=== PATIENT | female | born 1960 | race Caucasian/White ===

== ENCOUNTER 2024-02-27 06:21 | Day surgery (SDC) | payer OTHER, SELFPAY ==
--- NOTE | 2024-02-26 14:11 | PTCARENOTE ---
Patients 12/2023 ECG w/o interpretation; reviewed by Dr. Denney- no additional interventions required
[2024-02-27] VITALS (10 sets, daily range): BP systolic 119–163; BP diastolic 63–71; BMI 31.7
[2024-02-27] MEDS: CELEBREX 200 MG PO (15:42)
[2024-02-27] MEDS: TYLENOL 1000 MG PO (15:42)
[2024-02-27] MEDS: DEMEROL 12.5 MG IV (17:34)
[2024-02-27] MEDS: DUONEB 3 ML INH (18:16)
== END 2024-02-27 19:47 | disposition home or self-care (01) ==
LOC: SDS 06:21
PROVIDERS: ATTENDING PHYSICIAN Orthopaedic Surgery Hand Surgery; FAMILY PHYSICIAN Family Medicine
DX: S82.841A Displaced bimalleolar fracture of right lower leg, initial encounter for closed fracture (principal); M25.571 Pain in right ankle and joints of right foot; W54.1XXA Struck by dog, initial encounter
CPT/HCPCS: 27814; 94640; C1713; C1769

== ENCOUNTER 2024-03-27 10:30 | Emergency (ER) | payer OTHER, SELFPAY ==
[2024-03-27 10:36] VITALS: BP 161/76
--- NOTE | 2024-03-27 13:15 | ED.GENMED ---
History of Present Illness
General
Chief Complaint: Nose Bleed
Source: patient
Exam Limitations: none
Time Seen by Provider: 03/27/24 11:24
History of Present Illness
History of Present Illness:
63-year-old female presents with nosebleed starting earlier this morning and has been intermittent since then. She went to the urgent care and her nose. She went home. Started bleeding again at home. She denies chest pain. She is not
anticoagulated. The bleeding is coming from the right side of the nose.
Past History
Past History
ED Past Medical History: Other (Eczema and asthma)
Social History
Tobacco: Former smoker
Alcohol: Occasional
Family History
Family History: Other (Leukemia and strokes)
Phy Exam
Physical Exam
Physical Exam:
General: Well-appearing female no acute respiratory distress
HEENT: Normocephalic bilateral nasal cavities examined. No active bleeding posterior pharynx without blood. There is friable membranes noted over the medial anterior aspect of the right side of the nose.
Extremities: No cyanosis
Course
Vital Signs
Initial and Last Documented VS:
Initial Vital Signs
Temp Pulse Resp BP Pulse Ox
97.6 F 110 16 161/76 97
03/27/24 10:36 03/27/24 10:36 03/27/24 10:36 03/27/24 10:36 03/27/24 10:36
Last Documented Vital Signs
Temp Pulse Resp BP Pulse Ox
97.6 F 110 16 161/76 97
03/27/24 10:36 03/27/24 10:36 03/27/24 10:36 03/27/24 10:36 03/27/24 10:36
MDM/Problems Addressed
Differential Diagnosis Includes:
Intermittent right sided nosebleed. Friable membranes noted in the right nasal cavity. Piece of cotton soaked with lidocaine and epinephrine was placed into the right side of the nose and let sit for 10 minutes. This was then removed and the
friable membranes were slightly oozing after removal of the cotton. This was cauterized with silver nitrate. The patient was observed for period of time after the silver nitrate cauterization and there is no further bleeding. She has been
ambulatory without any bleeding. Stable for discharge. Return precuations given
*Critical Care Note
Total Time (30-74mins, 75-104mins- exclusive of procedures): Not Applicable
ED Attending Note
-
Portions of this chart may have been created with voice recognition software.� Occasional wrong word or��sound alike� substitutions may have occurred due to the inherent limitations of voice recognition software.
Discharge Plan
Departure
Patient Disposition: Home (Routine Discharge)
Date of Disposition: 03/27/24
Time of Disposition: 13:17
Patient with high blood pressure during this ER visit?: No
Discharge Problem:
Acute anterior epistaxis
Instructions: Nosebleeds (DC)
Prescriptions:
No Action
loratadine [Allergy Relief (loratadine)] 10 MG tablet,disintegrating
10 mg PO DAILY
Patient Comments:
pt alternates with zyrtec
progesterone micronized 200 mg Capsule
200 mg PO HS
montelukast 10 mg Tablet
10 mg PO HS
diltiazem HCl 240 mg Capsule,Extended Release 24hr
240 mg PO DAILY
lysine 1,000 mg Tablet
1,000 mg PO DAILY
omeprazole 20 mg Tablet,Delayed Release (Dr/Ec)
20 mg PO DAILY
cholecalciferol (vitamin D3) [Vitamin D3] 125 mcg (5,000 unit) Tablet
125 mcg PO DAILY
Calcium Magnesium 500 mg calcium- 250 mg Tablet
1 tab PO DAILY
naproxen sodium [Aleve] 220 mg Tablet
220 mg PO Q8H PRN (Reason: pain)
albuterol sulfate 0.63 mg/3 mL Solution For Nebulization
0.63 mg INHALATION Q4H PRN (Reason: SOB)
albuterol sulfate 90 mcg/actuation Hfa Aerosol Inhaler
2 puff INHALATION Q6H PRN (Reason: SOB)
Biote Hormone Pellet(Estrogen)
1 dose vaginal DIRECTED
Rx Instructions:
[id number]
clobetasol
1 dose topical PRN PRN (Reason: eczema)
acetaminophen 325 mg Tablet
650 mg PO PRN (Reason: pain)
tramadol 50 mg Tablet
50 mg PO DAILY
Rx Instructions:
only few left, took just at hs for pain relief
Referrals:
Gui Xie, [Family Provider] -
Activity Restrictions/Additional Instructions:
Keep the skin inside the nose moist with Vaseline. Avoid trauma to the nose. Return here for worsening symptoms otherwise follow-up with your doctor
Interventions
Interventions:
*Risk Screen - Suicide Last Done: 03/27/24 10:36
*General Assessment Last Done: 03/27/24 10:36
*ED COVID-19 Vaccine History Last Done: 03/27/24 10:36
Discharge Date and Time
Print Language: OMANI
[2024-03-27 13:42] VITALS: BP 139/82
== END 2024-03-27 13:43 | disposition home or self-care (01) ==
LOC: EMR 10:30
PROVIDERS: EMERGENCY PHYSICIAN Emergency Medicine; FAMILY PHYSICIAN Family Medicine
DX: R04.0 Epistaxis (principal); Z87.891 Personal history of nicotine dependence
CPT/HCPCS: 99282; 30901

== ENCOUNTER → 2024-04-23 03:52 | Emergency (ER) | payer OTHER, SELFPAY ==
[2024-04-23] VITALS (9 sets, daily range): BP systolic 141–174; BP diastolic 54–90; BMI 34.1
--- NOTE | 2024-04-23 07:31 | ED.GENMED ---
History of Present Illness
<DANNIELLE Velez - Last Filed: 04/23/24 12:58>
General
Chief Complaint: Nose Bleed
Source: patient
Exam Limitations: none
Time Seen by Provider: 04/23/24 07:04
Nursing documentation reviewed up to this point in time: agreed with
History of Present Illness
History of Present Illness:
Patient is a 63 female who presents to the ER complaining of nosebleed. She reports she has had intermittent nosebleeds since February. She was seen here in the ER and had this cauterized. She was also seen by local ENT Dr. Castrejon. She reports
bleeding started again Monday (right side) and she has been bleeding off and on since then. She started bleeding very heavily around 3 AM with clots and cannot stop the bleeding. She denies any headaches. Dr. Carr was concerned about her blood
pressure however she reports her blood pressure has been okay the highest she reports it has been has been in the 130s over 79. She has no associated headache. No known clotting disorder. She has not had any labs checked. Currently bleeding has
resolved.
Past History
<DANNIELLE Velez - Last Filed: 04/23/24 12:58>
Past History
ED Past Medical History: Other (Eczema and asthma)
Social History
Tobacco: Former smoker
Alcohol: Occasional
Family History
Family History: Other (Leukemia and strokes)
Review of Systems
<DANNIELLE Velez - Last Filed: 04/23/24 12:58>
Review of Systems
Allergies reviewed?: Yes
All Other Systems: ROS reviewed and negative except as documented in HPI and ROS
Constitutional: Reports no symptoms
EENT: Reports other (nosebleed )
Respiratory: Reports no symptoms
Cardiac: Reports no symptoms
ABD/GI: Reports no symptoms; Denies nausea or vomiting
: Reports no symptoms
Musculoskeletal: Reports no symptoms
Skin: Reports no symptoms
Neurological: Denies dizzy or headache
Psychiatric: Reports no symptoms
Phy Exam
<DANNIELLE Velez - Last Filed: 04/23/24 12:58>
General Physical Exam
General Presentation: no apparent distress
General age: appears stated age
General Skin: warm and dry
General Habitus: normal
General Mental: alert
General Hydration: appears well hydrated
ENT Exam
ENT Exam: other (No active bleeding small amount of redness noted to right nares upper anterior septal area)
Neurological Exam
Neurological Exam: alert and oriented x3
Course
<DANNIELLE Velez - Last Filed: 04/23/24 12:58>
Orders/Labs/Results
Orders:
Orders
04/23/24 07:40
Complete Blood Count/With Diff Urgent
Comprehensive Metabolic Panel Urgent
04/23/24 09:23
PTT Urgent
Prothrombin Time Urgent
Abnormal Lab Results
04/23/24
07:40
RBC 3.77 L 10^6/uL
(4.20-5.40)
Hgb 10.7 L g/dL
(12.0-16.0)
Hct 34.2 L %
(37.0-47.0)
MCHC 31.3 L g/dL
(33.0-37.0)
Plt Count 411 H 10^3/uL
(130-400)
Lymphocytes % 17.2 L %
(20.5-51.1)
Creatinine 0.5 L mg/dL
(0.6-1.0)
Glucose 105 H mg/dl
(70-99)
Total Protein 5.7 L g/dl
(6.3-8.2)
04/23/24 07:40
04/23/24 07:40
Vital Signs
Initial and Last Documented VS:
Initial Vital Signs
Temp Pulse Resp BP Pulse Ox
97.4 F 118 26 174/90 96
04/23/24 04:05 04/23/24 04:05 04/23/24 04:05 04/23/24 04:05 04/23/24 04:05
Last Documented Vital Signs
Temp Pulse Resp BP Pulse Ox
98.5 F 103 18 150/68 96
04/23/24 07:07 04/23/24 11:11 04/23/24 11:11 04/23/24 12:00 04/23/24 12:45
<Ty Santana, DO - Last Filed: 04/23/24 10:58>
Orders/Labs/Results
Orders:
Orders
04/23/24 07:40
Complete Blood Count/With Diff Urgent
Comprehensive Metabolic Panel Urgent
04/23/24 09:23
PTT Urgent
Prothrombin Time Urgent
Abnormal Lab Results
04/23/24
07:40
RBC 3.77 L 10^6/uL
(4.20-5.40)
Hgb 10.7 L g/dL
(12.0-16.0)
Hct 34.2 L %
(37.0-47.0)
MCHC 31.3 L g/dL
(33.0-37.0)
Plt Count 411 H 10^3/uL
(130-400)
Lymphocytes % 17.2 L %
(20.5-51.1)
Creatinine 0.5 L mg/dL
(0.6-1.0)
Glucose 105 H mg/dl
(70-99)
Total Protein 5.7 L g/dl
(6.3-8.2)
04/23/24 07:40
04/23/24 07:40
Vital Signs
Initial and Last Documented VS:
Initial Vital Signs
Temp Pulse Resp BP Pulse Ox
97.4 F 118 26 174/90 96
04/23/24 04:05 04/23/24 04:05 04/23/24 04:05 04/23/24 04:05 04/23/24 04:05
Last Documented Vital Signs
Temp Pulse Resp BP Pulse Ox
98.5 F 103 18 150/68 96
04/23/24 07:07 04/23/24 11:11 04/23/24 11:11 04/23/24 12:00 04/23/24 12:45
Procedures
<DANNIELLE Velez - Last Filed: 04/23/24 12:58>
Nosebleed
Drug treatment: Lidocaine and Epinephrine
Treatment: Merocel packing
Post treatment bleeding: none- good control
<Ty Santana DO - Last Filed: 04/23/24 10:58>
Nosebleed
Additional information:
10:57 AM: I personally placed a right sided anterior balloon packing to the right nare
<DANNIELLE Velez - Last Filed: 04/23/24 12:58>
MDM/Problems Addressed
Differential Diagnosis Includes:
Not limited to nosebleed; anemia
MDM/Problems Addressed:
As documented patient is a 63-year-old female who has had several nosebleeds. Patient was seen here March 23 and had a cauterization. Patient also has seen Dr. Bruno AVERY and had this cauterized but presents with persistent bleeding since last
night. I did pack nares initially with Merocel however patient bled through that. Patient was seen by Dr. Santana who inserted a rapid Rhino, patient was monitored here had slight bleeding with the rapid Rhino however this was inflated with a
little more air and patient did well with no further bleeding.,
Patient's hemoglobin is low at 10.7 discussed with patient to have this checked by family doctor. No other concerning abnormality and labs
Patient
<DANNIELLE Velez - Last Filed: 04/23/24 12:58>
*Critical Care Note
Total Time (30-74mins, 75-104mins- exclusive of procedures): Not Applicable
ED Attending Note
<DANNIELLE Velez - Last Filed: 04/23/24 12:58>
-
Portions of this chart may have been created with voice recognition software.� Occasional wrong word or��sound alike� substitutions may have occurred due to the inherent limitations of voice recognition software.
<Ty Santana DO - Last Filed: 04/23/24 10:58>
ED Attending Note
Patient seen and examined by attending physician: Yes
I performed the substantive portion of visit, reviewed & personally made and approve the management plan that is documented in note by myself or LILLIAN.: Yes
ED Attending Note:
I have seen and evaluated the patient with a [id number] encounter. I have spoken to the advance practicer provider and involved in the medical history, the physical exam, medical decision making.
Evaluation and management service: agree unless noted differently below.
Results interpretation: agree unless noted differently below.
Focused HPI: 63-year-old female presenting with recurrent nosebleeding. Patient has been evaluated by ENT for the past and required cauterization
Physical exam: Sitting bed comfortably. Oozing noted from right nare
Medical Decision Making: Several attempts were made to resolve the nosebleeding. Given the persistent bleeding, a Rhino Rocket was placed in the right nare. This was presoaked with lidocaine with epinephrine. Patient tolerated procedure well
Discharge Plan
Departure
Patient Disposition: Home (Routine Discharge)
Date of Disposition: 04/23/24
Time of Disposition: 10:03
Patient with high blood pressure during this ER visit?: Yes
Condition: Fair
Covid-19: Not Applicable
Discharge Problem:
Anterior epistaxis
Instructions: Nosebleeds (DC), BLOOD PRESSURE
Prescriptions:
No Action
loratadine [Allergy Relief (loratadine)] 10 MG tablet,disintegrating
10 mg PO DAILY
Patient Comments:
pt alternates with zyrtec
progesterone micronized 200 mg Capsule
200 mg PO HS
montelukast 10 mg Tablet
10 mg PO HS
diltiazem HCl 240 mg Capsule,Extended Release 24hr
240 mg PO DAILY
lysine 1,000 mg Tablet
1,000 mg PO DAILY
omeprazole 20 mg Tablet,Delayed Release (Dr/Ec)
20 mg PO DAILY
cholecalciferol (vitamin D3) [Vitamin D3] 125 mcg (5,000 unit) Tablet
125 mcg PO DAILY
Calcium Magnesium 500 mg calcium- 250 mg Tablet
1 tab PO DAILY
naproxen sodium [Aleve] 220 mg Tablet
220 mg PO Q8H PRN (Reason: pain)
albuterol sulfate 0.63 mg/3 mL Solution For Nebulization
0.63 mg INHALATION Q4H PRN (Reason: SOB)
albuterol sulfate 90 mcg/actuation Hfa Aerosol Inhaler
2 puff INHALATION Q6H PRN (Reason: SOB)
Biote Hormone Pellet(Estrogen)
1 dose vaginal DIRECTED
Rx Instructions:
[id number]
clobetasol
1 dose topical PRN PRN (Reason: eczema)
acetaminophen [Tylenol] 325 mg Tablet
650 mg PO DAILY
tramadol 50 mg Tablet
50 mg PO DAILY
Rx Instructions:
only few left, took just at hs for pain relief
Referrals:
Gui Xie DO [Family Provider] -
Marcial Tolliver MD [Active] -
Activity Restrictions/Additional Instructions:
As discussed please follow-up with ear nose and throat specialty in 2 days to have packing removed. Also as discussed your hemoglobin was 10.7 today. Please have this rechecked. Return if any worsening of symptoms.
Interventions
Interventions:
*Risk Screen - Suicide Last Done: 04/23/24 04:05
*General Assessment Last Done: 04/23/24 04:24
*Neglect/Abuse Screening Last Done: 04/23/24 04:05
ED- Fall Risk Assessment Last Done: 04/23/24 07:07
*ED COVID-19 Vaccine History Last Done: 04/23/24 04:24
ED-EENT Assessment Last Done: 04/23/24 07:07
Discharge Date and Time
Print Language: ALGERIAN
[2024-04-23 07:50] LABS: % Basophils 0.6 % (0-2); % Eosinophils 1.6 % (0-6); % Immature Granulocytes 0.5 % (0-0.5); % Lymphocytes 17.2 % (20.5-51.1); % Neutrophils 74.1 % (42.2-75.2); Absolute Basophils 0.1 10^3/uL (0-0.2); Absolute Eosinophils 0.1 10^3/uL (0-0.7); Absolute Lymphocytes 1.4 10^3/uL (1.2-3.4); Absolute Monocytes 0.5 10^3/uL (0.1-0.6); Absolute Neutrophils 6.1 10^3/uL (1.4-6.5); Hematocrit 34.2 % (37.0-47.0); Hemoglobin 10.7 g/dL (12.0-16.0); Mean Corp Hgb Conc. 31.3 g/dL (33.0-37.0); Mean Corpuscular Hgb 28.4 pg (27.0-31.0); Mean Corpuscular Volume 90.7 fL (81.0-99.0); Mean Platelet Volume 9.7 fL (7.4-10.4); Nucleated Red Blood Cells % 0 %; Platelet Count 411 10^3/uL (130-400); Red Blood Cell Count 3.77 10^6/uL (4.20-5.40); Red Cell Dist. Width 13.8 % (11.5-14.5); White Blood Cell Count 8.2 10^3/uL (4.8-10.8)
[2024-04-23 08:03] LABS: ALT (SGPT) < 10 U/L (0-35); AST (SGOT) 14 U/L (14-36); Albumin 3.5 g/dl (3.5-5.0); Alkaline Phosphatase 85 U/L (38-126); Blood Urea Nitrogen 16 mg/dl (7-17); Calcium 8.9 mg/dl (8.4-10.2); Carbon Dioxide 30 mmol/L (22-30); Chloride 103 mmol/L (98-107); Estimated Creatinine Clearance 97 ml/min; Glucose 105 mg/dl (70-99); Potassium 4.3 mmol/L (3.5-5.1); Sodium 136 mmol/L (135-145); Total Bilirubin 0.3 mg/dl (0.2-1.3); Total Protein 5.7 g/dl (6.3-8.2); eGFR > 60.00
[2024-04-23 09:44] LABS: APTT 25.9 Sec (23.4-35.0); INR 1.02; PT 13.7 Sec (11.4-14.6)
--- NOTE | 2024-04-23 10:31 | EDRN ---
the pts nose started to bleed again, this RN notified Divya Cheema NP who is currently at the pts bedside
--- NOTE | 2024-04-23 13:18 | CON.MD ---
Consultation - Medical
-
Epistaxis
63 yo presents c R sided epistaxis, significant with clots this AM
Mild elevation of BP, on no blood thinners
Controlled with 4.5 cm balloon pack
Consulted due to some recurrent bleeding when stood up
PE - OC - dry, some ant oozing
Pack deflated , seemed to have about 6 cc air in it
Reinflated to 9 cc air
Epistaxis seems controlled
OC - still dry
A/P Epistaxis
Seems controlled c additional air in present pack
Observe another 30 min, monitor BP, treat if needed
If ok, can d/c on prophylactic antibx such as Amox
consider low dose Valium or pain meds if needed
follow up ENT office on Monday for packing removal
== END | disposition home or self-care (01) ==
LOC: EMR 03:52
PROVIDERS: Nurse Practitioner; EMERGENCY PHYSICIAN Student in an Organized Health Care Education/Training Program; FAMILY PHYSICIAN Family Medicine; OTHER PHYSICIAN Otolaryngology
DX: R04.0 Epistaxis (principal); R79.89 Other specified abnormal findings of blood chemistry; J45.909 Unspecified asthma, uncomplicated; I10 Essential (primary) hypertension; Z91.040 Latex allergy status; Z88.5 Allergy status to narcotic agent; Z88.8 Allergy status to other drugs, medicaments and biological substances; Z91.048 Other nonmedicinal substance allergy status
CPT/HCPCS: 99283; 30901; 80053; 85025; 85610; 85730

== ENCOUNTER 2024-07-18 15:42 | Emergency (ER) | payer OTHER, SELFPAY ==
[2024-07-18 15:46] VITALS: BP 163/81
[2024-07-18 16:01] LABS: % Basophils 0.4 % (0-2); % Eosinophils 1.6 % (0-6); % Immature Granulocytes 0.4 % (0-0.5); % Lymphocytes 9.7 % (20.5-51.1); % Monocytes 5.8 % (1.7-9.3); % Neutrophils 82.1 % (42.2-75.2); Absolute Basophils 0.1 10^3/uL (0-0.2); Absolute Eosinophils 0.2 10^3/uL (0-0.7); Absolute Immature Granulocytes 0.1 10^3/uL (0-0.05); Absolute Lymphocytes 1.3 10^3/uL (1.2-3.4); Absolute Monocytes 0.8 10^3/uL (0.1-0.6); Absolute Neutrophils 11.2 10^3/uL (1.4-6.5); Hemoglobin 13.6 g/dL (12.0-16.0); Mean Corp Hgb Conc. 31.6 g/dL (33.0-37.0); Mean Corpuscular Hgb 26.2 pg (27.0-31.0); Mean Corpuscular Volume 82.7 fL (81.0-99.0); Mean Platelet Volume 10.1 fL (7.4-10.4); Nucleated Red Blood Cells % 0 %; Platelet Count 382 10^3/uL (130-400); Red Cell Dist. Width 16.3 % (11.5-14.5); White Blood Cell Count 13.7 10^3/uL (4.8-10.8)
[2024-07-18 16:23] LABS: ALT (SGPT) < 10 U/L (0-35); AST (SGOT) 16 U/L (14-36); Albumin 4.4 g/dl (3.5-5.0); Alkaline Phosphatase 102 U/L (38-126); Blood Urea Nitrogen 13 mg/dl (7-17); Calcium 9.1 mg/dl (8.4-10.2); Carbon Dioxide 24 mmol/L (22-30); Chloride 106 mmol/L (98-107); Glucose 111 mg/dl (70-99); Potassium 4.1 mmol/L (3.5-5.1); Sodium 138 mmol/L (135-145); Total Bilirubin 0.3 mg/dl (0.2-1.3); Total Protein 6.9 g/dl (6.3-8.2); eGFR > 60.00
--- NOTE | 2024-07-18 17:09 | EDRN ---
called in after pt triaged:
[Dr. Mcpherson ([employer] director [employer]) sending in Bev Lopez. 64yoF with a history of COPD just started on inhaler yesterday and recent R ankle fracture with surgery scheduled next week. She was concerned about significant edema of R ankle and
developing abscess vs. DVT. She was also wheezing at the office. She feels the patient may need a V/Q scan (hx of contrast allergy).
3:54 PM
Message sent at 3:54 PM.]
--- NOTE | 2024-07-18 18:37 | ED.GENMED ---
History of Present Illness
General
Chief Complaint: Musculo-Skeletal Complaint
Source: patient and spouse
Time Seen by Provider: 07/18/24 18:14
History of Present Illness
History of Present Illness:
64-year-old female who had an ORIF of the right ankle due to a bimalleolar fracture with plate placement on February 26. Recently she noted increasing swelling and discomfort and redness in that area, saw the orthopedic doctor last Monday i.e. 8
days ago, and was told that she will need to have the hardware removed. This is scheduled for next Monday. However, in the last few days she notes increasing swelling, increasing pain, and decreased range of motion as a result. No fever,
chills, new trauma. She noted drainage that began on Monday, purulent.
Past History
Past History
ED Past Medical History: GERD and Other (Eczema and asthma)
Social History
Tobacco: Former smoker
Alcohol: Occasional
Drug: None
Personal:
Living: with family
Family History
Family History: Other (Leukemia and strokes)
Phy Exam
Physical Exam
Physical Exam:
GENERAL: Alert , in no apparent distress
EYE: pupils equal and reactive
NECK: Supple, no significant adenopathy.
ENT: o/p clr, mmm.
CARDIAC: Regular rate and rhythm .
LUNGS: Clear breath sounds bilaterally, no acute respiratory distress, no wheezes/rales/rhonchi
ABDOMEN: Soft, without focal tenderness, no r/g, no cvat
NEUROLOGICAL: Alert and oriented, no focal neuro deficits
SKIN: Warm and dry, skin intact.
MUSCULOSKELETAL: Well perfused. Nl pulses. There is crusting (yellowish) noted at opening later R ankle just superior to malleolus with surround erythema, warmtha nd ttp. No fluctuance/crepitus. No streaking. FROM preserved but painful
PSYCH: Normal and appropriate interaction.
Course
Orders/Labs/Results
Orders:
Orders
07/18/24 15:56
Complete Blood Count/With Diff Urgent
Comprehensive Metabolic Panel Urgent
07/18/24 19:05
CRP [C-Reactive Protein] Urgent
ESR [Erythrocyte Sed Rate] Urgent
07/18/24 19:34
CeFAZolin 1 GRAM [Ancef] 1 gram in 5 ml IV NOW
07/18/24 20:44
Wound Culture [Wound/Abscess/Other Culture] Urgent
LUIS ANGEL Source: Leg
Specimen Description: Right
Date Specimen was Collected: 07/18/24
Time Specimen was Collected: 20:33
Abnormal Lab Results
07/18/24 07/18/24
15:56 19:05
WBC 13.7 H 10^3/uL
(4.8-10.8)
MCH 26.2 L pg
(27.0-31.0)
MCHC 31.6 L g/dL
(33.0-37.0)
RDW 16.3 H %
(11.5-14.5)
Abs Immat Gran (auto) 0.1 H 10^3/uL
(0-0.05)
Absolute Neuts (auto) 11.2 H 10^3/uL
(1.4-6.5)
Absolute Monos (auto) 0.8 H 10^3/uL
(0.1-0.6)
Neutrophils % 82.1 H %
(42.2-75.2)
Lymphocytes % 9.7 L %
(20.5-51.1)
ESR 25 H mm/hour
(0-20)
Glucose 111 H mg/dl
(70-99)
C-Reactive Protein 67.30 H mg/L
(0.0-10.00)
07/18/24 15:56
07/18/24 15:56
Vital Signs
Initial and Last Documented VS:
Initial Vital Signs
Temp Pulse Resp BP Pulse Ox
98.6 F 99 16 163/81 93
07/18/24 15:46 07/18/24 15:46 07/18/24 15:46 07/18/24 15:46 07/18/24 15:46
Last Documented Vital Signs
Temp Pulse Resp BP Pulse Ox
98.6 F 91 18 169/71 93
07/18/24 15:46 07/18/24 20:43 07/18/24 20:43 07/18/24 20:43 07/18/24 20:43
Procedures
Incision/Drainage/Joint Aspiration
Right Leg:
Anethesia: 1% Lidocaine with Epi
Preparation: cleaned with Betadine
Type of procedure: incise
Nature of site: other
Description of abscess: less than 3cm
Loculations broken up: No
How much fluid was obtained?: scant amount
Treatment: left open for drainage
Additional information:
min to no drainage noted. area copiously irrigated. abx started. pt tolerated procedure well.
*Critical Care Note
Total Time (30-74mins, 75-104mins- exclusive of procedures): Not Applicable
Update Note
Update Note:
Patient presents to the Emergency Department with ___right ankle pain drainage and redness
Number and Complexity of Problems Addressed at the Encounter
� Chronic conditions affecting care:
� Acute Exacerbation and/or Progression of Chronic Illness:
� Differential Diagnosis includes: But not limited to cellulitis, abscess, infected hardware, allergic reaction, etc. etc.
Amount and/or Complexity of Data to be Reviewed and Analyzed
� I performed an independent evaluation of and my interpretation is:
EKG:
CT:
Xrays:
Laboratory Studies: Slight white blood cell count elevation
Other:
� Review of other/old records reveals:
� Clinical information was obtained by an independent historian:
� Prescriptions/Medications Considered but not given:
� Further testing considered but not performed:
Risk of Complications and/or Morbidity or Mortality of Patient Management
� Social determinants of health affecting care:
� Discussion with other providers (PCP, Hospitalists, Consultants, etc):
� Escalation of care including admission/observation vs risk of discharge considered: Case discussed with Dr. Alvarez, and I did include photos both of Monday and today and her original visit with Dr. Woodruff last week for
comparison. Of note, Saturdays photo did show a small area of drainage. Patient certainly is not septic, she is awake alert nontoxic and well-appearing. She denies fevers chills. Vital stable. However, concern for abscess/infection.
Recommendation is to open area up, irrigate, give Ancef IV x 1 here and discharged with Bactrim, dressing with Xeroform 4 x [address] Alvarez will discuss with Dr. Donaldson in the morning and patient will receive close follow-up regarding.
All discussed with patient and she is agreeable to this and understands importance of this close follow-up and reasons return to the ER. wound cx sent.
ED Attending Note
-
Portions of this chart may have been created with voice recognition software.� Occasional wrong word or��sound alike� substitutions may have occurred due to the inherent limitations of voice recognition software.
Discharge Plan
Departure
Patient Disposition: Home (Routine Discharge)
Date of Disposition: 07/18/24
Time of Disposition: 20:03
Patient with high blood pressure during this ER visit?: Yes
Condition: Good
Discharge Problem:
Cellulitis
Instructions: Cellulitis (skin infection) in adults - Discharge instructions, BLOOD PRESSURE
Prescriptions:
New
sulfamethoxazole-trimethoprim [Bactrim DS] 800-160 mg tablet
1 tab PO BID 7 Days Qty: 14 0RF
No Action
loratadine [Allergy Relief (loratadine)] 10 MG tablet,disintegrating
10 mg PO DAILY
Patient Comments:
pt alternates with zyrtec
progesterone micronized 200 mg Capsule
200 mg PO HS
montelukast 10 mg Tablet
10 mg PO HS
diltiazem HCl 240 mg Capsule,Extended Release 24hr
240 mg PO DAILY
lysine 1,000 mg Tablet
1,000 mg PO DAILY
omeprazole 20 mg Tablet,Delayed Release (Dr/Ec)
20 mg PO DAILY
cholecalciferol (vitamin D3) [Vitamin D3] 125 mcg (5,000 unit) Tablet
125 mcg PO DAILY
Calcium Magnesium 500 mg calcium- 250 mg Tablet
1 tab PO DAILY
naproxen sodium [Aleve] 220 mg Tablet
220 mg PO Q8H PRN (Reason: pain)
albuterol sulfate 0.63 mg/3 mL Solution For Nebulization
0.63 mg INHALATION Q4H PRN (Reason: SOB)
albuterol sulfate 90 mcg/actuation Hfa Aerosol Inhaler
2 puff INHALATION Q6H PRN (Reason: SOB)
Biote Hormone Pellet(Estrogen)
1 dose vaginal DIRECTED
Rx Instructions:
[id number]
clobetasol
1 dose topical PRN PRN (Reason: eczema)
acetaminophen [Tylenol] 325 mg Tablet
650 mg PO DAILY
tramadol 50 mg Tablet
50 mg PO DAILY
Rx Instructions:
only few left, took just at hs for pain relief
Referrals:
Santana Olvera MD [Active] - Tomorrow
Gui Xie DO [Family Provider] -
Activity Restrictions/Additional Instructions:
IF YOU DEVELOP FEVER, CHILLS, SWEATS, INCREASING OR NEW PAIN, INCREASING OR NEW REDNESS, GET WORSE, OR OTHER WORRISOME SIGNS PLEASE RETURN TO THE ER IMMEDIATELY! PLEASE CALL DR. OLVERA IN THE MORNING REGARDING FURTHER MANAGEMENT
Interventions
Interventions:
*Risk Screen - Suicide Last Done: 07/18/24 18:00
*General Assessment Last Done: 07/18/24 18:00
*Neglect/Abuse Screening Last Done: 07/18/24 18:00
*ED- Fall Risk Assessment Last Done: 07/18/24 18:00
*ED COVID-19 Vaccine History Last Done: 07/18/24 18:00
*Nursing Disposition Last Done: 07/18/24 20:47
ED-Musculoskeletal Assessment Last Done: 07/18/24 18:00
Discharge Date and Time
Discharge Date/Time: 07/18/24 20:47
Print Language: SOMALI
[2024-07-18 19:18] LABS: Erythrocyte Sed Rate 25 mm/hour (0-20)
[2024-07-18] MEDS: ANCEF 5 IV (19:46)
[2024-07-18 20:43] VITALS: BP 169/71
== END 2024-07-18 20:47 | disposition home or self-care (01) ==
LOC: EMR 15:42
PROVIDERS: EMERGENCY PHYSICIAN Emergency Medicine; FAMILY PHYSICIAN Family Medicine
DX: L03.115 Cellulitis of right lower limb (principal); L02.415 Cutaneous abscess of right lower limb; R03.0 Elevated blood-pressure reading, without diagnosis of hypertension; Z87.891 Personal history of nicotine dependence
CPT/HCPCS: 99284; 96374; 10060; 80053; 85025; 85652; 86140; 87070; 87147; 87186; 87205

== ENCOUNTER 2024-07-30 18:38 | Inpatient (IN) | payer OTHER, SELFPAY ==
[2024-07-30] VITALS (8 sets, daily range): BP systolic 134–163; BP diastolic 58–77; BMI 34.9; BMI 35.1; BMI 34.6
[2024-07-30 13:55] LABS: % Basophils 0.7 % (0-2); % Eosinophils 2.8 % (0-6); % Immature Granulocytes 0.4 % (0-0.5); % Monocytes 4.6 % (1.7-9.3); % Neutrophils 74.5 % (42.2-75.2); Absolute Basophils 0.1 10^3/uL (0-0.2); Absolute Eosinophils 0.3 10^3/uL (0-0.7); Absolute Lymphocytes 1.7 10^3/uL (1.2-3.4); Absolute Monocytes 0.5 10^3/uL (0.1-0.6); Absolute Neutrophils 7.6 10^3/uL (1.4-6.5); Hematocrit 38.7 % (37.0-47.0); Hemoglobin 12.2 g/dL (12.0-16.0); Mean Corp Hgb Conc. 31.5 g/dL (33.0-37.0); Mean Corpuscular Hgb 26.2 pg (27.0-31.0); Mean Platelet Volume 10.2 fL (7.4-10.4); Nucleated Red Blood Cells % 0 %; Platelet Count 421 10^3/uL (130-400); Red Blood Cell Count 4.66 10^6/uL (4.20-5.40); Red Cell Dist. Width 16.6 % (11.5-14.5); White Blood Cell Count 10.1 10^3/uL (4.8-10.8)
[2024-07-30 14:03] LABS: Lactic Acid 0.9 mmol/L (0.7-2.0)
[2024-07-30 14:06] LABS: ALT (SGPT) 12 U/L (0-35); AST (SGOT) 20 U/L (14-36); Albumin 4.4 g/dl (3.5-5.0); Alkaline Phosphatase 104 U/L (38-126); Blood Urea Nitrogen 21 mg/dl (7-17); Calcium 9.3 mg/dl (8.4-10.2); Carbon Dioxide 26 mmol/L (22-30); Chloride 108 mmol/L (98-107); Glucose 94 mg/dl (70-99); Potassium 4.6 mmol/L (3.5-5.1); Sodium 142 mmol/L (135-145); Total Bilirubin 0.2 mg/dl (0.2-1.3); Total Protein 6.5 g/dl (6.3-8.2); eGFR > 60.00
--- NOTE | 2024-07-30 15:10 | ED.GENMED ---
History of Present Illness
General
Chief Complaint: Post Operative Problem(s)
Source: patient
Exam Limitations: none
Time Seen by Provider: 07/30/24 15:04
Nursing documentation reviewed up to this point in time: agreed with
History of Present Illness
History of Present Illness:
Patient is a 64-year-old female with history of asthma, COPD, hypertension who presents to the emergency department for admission due to right ankle infection. Patient had ORIF on 02/27/24 after sustaining a right ankle fracture. Patient had
hardware removed last week, 07/24/[address] Olvera. Patient had wound cultures obtained during hardware removal procedure last week which grew back positive today. Patient was sent to the emergency department for admission and IV antibiotics, as
well as ID consult.
Patient reports some pain near her incision on her right ankle. However�she has been ambulatory without difficulty. Patient denies any numbness/tingling in right lower extremity. Patient denies any fevers, chest pain, shortness of breath
No known antibiotic allergies.
Past History
Past History
ED Past Medical History: GERD and Other (Eczema and asthma)
Social History
Tobacco: Former smoker
Alcohol: Occasional
Drug: None
Personal:
Living: with family
Family History
Family History: Other (Leukemia and strokes)
Review of Systems
Review of Systems
Allergies reviewed?: Yes
All Other Systems: ROS reviewed and negative except as documented in HPI and ROS
Phy Exam
Physical Exam
Physical Exam:
Vitals: Mildly hypertensive, otherwise vital signs stable. Afebrile
General: Patient is well appearing, no acute distress
Skin: Surgical incision of right ankle with sutures in place. No purulent drainage or surrounding erythema or red streaking.
Head: Normocephalic, atraumatic
Eyes: Sclera nonicteric.
Throat: Protecting airway
Neck: Normal ROM, no cervical spine tenderness, no meningismus
Cardiac: Regular rate and rhythm, no murmurs.
Pulm: Normal respiratory effort, no wheezes, rales, rhonchi heard on exam
.
Abdomen: No abdominal tenderness.
Extremities: Surgical incision of right ankle as described above w/ sutures in place. No significant swelling or right ankle or evidence of joint effusion. 2+ palpable right DP pulse. Sensation intact with normal cap refill of RLE.
Neuro: AAOx3. Grossly intact.
Psychiatric: Normal affect.
Course
Orders/Labs/Results
Orders:
Orders
07/30/24 Breakfast
Regular
At Your Request: Full Participation
07/30/24 13:35
C-Reactive Protein Routine
Comment: ADD ON
Complete Blood Count/With Diff Urgent
Comprehensive Metabolic Panel Urgent
Lactate Level [Lactic Acid] Urgent
Blood Culture Urgent
LUIS ANGEL Source: Blood/Venous
Specimen Description:
07/30/24 15:41
Blood Culture Urgent
LUIS ANGEL Source: Blood/Venous
Specimen Description:
07/30/24 16:01
Weight Bearing Status As Directed
Weight bearing to: Right lower extremity
Type: Wt. bearing as tolerated
Instructions: ad devika
07/30/24 16:24
Vancomycin [Vancocin] 2,000 mg 0.9% Sodium Chloride 500 ml [Nss] 500 ml IV NOW
07/30/24 16:39
Add On- LAB Routine
Tests Added?: CRP
07/30/24 17:02
PICC Line As Directed
07/30/24 17:24
Admit/Transfer Patient As Directed
Co-Sign Provider:
Level of Care: Inpatient admission
Assign to:: Medical/Surgical
Physician / Group: Armond
Diagnosis: Right Ankle Infection
Reason for Hospitalization: IV abx
Expected length of stay greater than two midnights?: Yes
ELOS- Estimated Length of Stay in days: 3
I certify the patient meets the requirements for IP care: Yes
PRN Pain Medication Management As Directed
May give lesser potent ordered pain med per pt: Yes
preference::
Protocol:: Medication orders for pain may be administered in a
manner that supports deferring to patient preference
when the pt is:
- Requesting an ordered lesser potent pain medication.
Least to most potent pain medications are defined
as: acetaminophen < NSAID < tramadol < opioids
(morphine, oxycodone, hydromorphone).
- Requesting a lesser dose of the same medication IF
ORDERED.
- Requesting a less intrusive route of administration
if both routes are prescribed by the provider (PO <
IV).
07/30/24 17:27
Code Status As Directed
Resuscitation Status: Full Code
07/30/24 18:00
Ampicillin/Sulbactam 3 G [Unasyn] 3 gm 0.9% Sodium Chloride 100 ml [Nss] 100 ml IV Q6H
07/30/24 20:00
Ampicillin/Sulbactam 3 G [Unasyn] 3 gm 0.9% Sodium Chloride 100 ml [Nss] 100 ml IV Q6H
07/30/24 20:09
Acetaminophen [Tylenol] 650 mg PO Q4HPRN PRN MILD PAIN
Albuterol Nebs [Ventolin Nebules] 2.5 mg INH R Q4HPRN PRN shortness of breath
Enoxaparin Sodium [Lovenox] 40 mg SC QPM
07/30/24 20:09
INFECTIOUS DISEASE CONSULT Routine
Consulting Provider: Charlotte Jiménez
Was physician already notified: Yes
ORTHOPEDIC CONSULT Routine
Consulting Provider: Santana Olvera
Was physician already notified: Yes
Activity As Directed
Activity Level: Out of Bed-Early Mobility
With Assistance
DX Deep Vein Thrombosis Video Routine
07/30/24 20:30
Budesonide/Formoterol 160/4.5 [Symbicort 160/4.5 Mcg Inhaler] 2 puff INH R BID
07/30/24 22:00
Montelukast Sodium [Singulair] 10 mg PO HS
progesterone micronized See Dose Instructions PO HS
07/31/24 08:00
Cholecalciferol (Vitamin D3) [VITAMIN D3 (cholecalciferol)] 125 mcg PO DAILY
Diltiazem Extended Release [Cardizem Cd] 240 mg PO DAILY
Ferrous Sulfate [Feosol] 325 mg PO DAILY
Abnormal Lab Results
07/30/24
13:35
MCH 26.2 L pg
(27.0-31.0)
MCHC 31.5 L g/dL
(33.0-37.0)
RDW 16.6 H %
(11.5-14.5)
Plt Count 421 H 10^3/uL
(130-400)
Absolute Neuts (auto) 7.6 H 10^3/uL
(1.4-6.5)
Lymphocytes % 17.0 L %
(20.5-51.1)
Chloride 108 H mmol/L
(98-107)
BUN 21 H mg/dl
(7-17)
07/30/24 13:35
07/30/24 13:35
Vital Signs
Initial and Last Documented VS:
Initial Vital Signs
Temp Pulse Resp BP Pulse Ox
98.7 F 87 18 145/77 94
07/30/24 13:16 07/30/24 13:16 07/30/24 13:16 07/30/24 13:16 07/30/24 13:16
Last Documented Vital Signs
Temp Pulse Resp BP Pulse Ox
98.3 F 92 16 163/73 96
07/30/24 20:00 07/30/24 20:00 07/30/24 20:00 07/30/24 20:00 07/30/24 20:00
MDM/Problems Addressed
Differential Diagnosis Includes:
Not limited to: post-operative complication, cellulitis, septic arthritis, bacteremia, etc
MDM/Problems Addressed:
64 y.o F approximately 5 months post-op from ORIF of right ankle following bimalleolar fx now with post-operative right ankle infection. Hardware removed 07/24/24 after concern for infection secondary to wound healing complications and found to have
positive wound culture. Sent to ED by orthopedics for admission, IV abx. Patient without any constitutional symptoms of infection. She has been weight bearing without difficulty. Vitals and physical exam as above. Surgical incision of right ankle
noted with sutures in place. No purulent drainage or areas of fluctuance/induration. No evidence fo surrounding cellulitis. RLE neurovascularly intact.
Labs initiated in triage without clinically significant abnormalities. No leukocytosis. CRP within normal range. Prior wound culture results reviewed which was positive for MSSA. Apparently intraoperative cultures growing Prevotella - beta lactamase
+. Will start IV vancomycin in ED pending ID consult and abx recommendations. Patient accepted to hospitalist service in stable condition with ID consult w/ plan for continued IV abx / PICC placement. Patient seen by ortho correspondent in triage.
Chronic conditions affecting care:
Recent ORIF of right ankle
Acute Exacerbation and/or Progression of Chronic Illness:
Post-operative infection of right ankle
*Pulse Oximetry
Patient hypoxic: no
*EKG
Interpreted by ED Provider?: NA
*Furnace Roaster Interpretation
Rate: Furnace Roaster- N/A
*Critical Care Note
Total Time (30-74mins, 75-104mins- exclusive of procedures): Not Applicable
Data Reviewed
Review of Other/Old Records Reveals: Discharge Summary (ED visit 07/18/24 for cellulitis/abscess of right ankle; I&D performed and abx initiated)
Source: previous hospital records
Patient Management
Discussion with other providers: Hospitalist and C[employer] (Case discussed w/ orthopedics)
Escalation/DeEscalation of care consider admission/obs:
Admit for IV abx, ID consult, likely PICC placement
Update Note
Update Note:
Update: I was called to patients bedside as she developed erythematous rash of chest/ back and pruritus of scalp after starting vancomycin infusion. Patient appears well with no breathing difficulty or facial/oral swelling. She remains
hemodynamically stable. ID has since consulted on patient and ultimately recommended IV Unasyn. Given apparent vanco sensitivity - will plan to hold further vanco and switch to recommended IV unasyn. Will give IV benadryl/pepcid to treat
symptomatically. Hospitalist aware.
ED Attending Note
-
Portions of this chart may have been created with voice recognition software.� Occasional wrong word or��sound alike� substitutions may have occurred due to the inherent limitations of voice recognition software.
Discharge Plan
Departure
Patient Disposition: Admit
Date of Disposition: 07/30/24
Time of Disposition: 16:19
Presentation/result/management discussed w/ accepting MD/DO: Hospitalist
Discharge Problem:
Post-operative infection of right ankle
Interventions
Interventions:
*Risk Screen - Suicide Last Done: 07/30/24 15:30
*General Assessment Last Done: 07/30/24 15:30
*Neglect/Abuse Screening Last Done: 07/30/24 15:30
*ED- Fall Risk Assessment Last Done: 07/30/24 15:30
*ED COVID-19 Vaccine History Last Done: 07/30/24 15:30
*Nursing Disposition Last Done: 07/30/24 20:10
ED-Skin Assessment Last Done: 07/30/24 15:30
Discharge Date and Time
Discharge Date/Time: 07/30/24 20:10
--- NOTE | 2024-07-30 15:32 | CON.ORTHO ---
Consultation
-
Date/Time Consultation Requested: August 21/1500
Date/Time Consultation Performed: August 21/1505
Requesting Provider: Ge
Performing Provider: Courtney Olvera
Reason for Consultation: Right ankle infection
Consultation - Orthopedics
History
History of Present Illness:
This is a 64-year-old white female with PMH noted below, who was initially seen outpatient in our orthopedic office with a right ankle injury after being knocked over by her dog. she was found radiographically to have a minimally displaced oblique
Lozano B distal fibular fracture and a nondisplaced fracture of her medial malleolus. It was felt at that time that ORIF would provide her the best outcome. She was taken to the OR on [address] Olvera and underwent a successful ORIF
of her right ankle. Typical postop course with weightbearing progression was followed. She initially did well. She then developed some wound healing problems laterally. Based on her persistent wound issues it was felt during an outpatient visit
in our office on 10 Jul 2024 to remove the hardware laterally. fortunately her fracture healed well. CLARY (lateral plate and screws) took place on 24 Jul 2024 outpatient at [facility] under the direction of Dr. Olvera. Intraoperative cultures were sent and
unfortunately returned positive for Prevotella species. We touched base with the ID team and were informed that the best course of management would be IV ABX via PICC. she was instructed by my colleague, Ned Yao PA-C, to present to the ED
today for admission to the hospitalist team with ID consult, placement of PICC, and the initiation of IV ABX. I was informed of her arrival time in the ED and saw her in the triage area, evaluating her and discussing the plan at length. Fortunately
she is feeling well and not constitutional
Past Medical History:
Voicebox polyps
Anxiety
GERD
Sinus tachycardia
Colon polyps
Obesity
Vit. D deficiency
Asthma
Past Surgical History:
Right ankle ORIF (Jan 2024)
Left ankle fixation (2014)
Right knee arthroscopy
Vocal cord polypectomy
Tummy Tuck
C-sections x 2
Family History:
Non contributory
Social History:
Former smoker (>10 years)
ETOH social
ROS:
12 point negative except those mentioned in the HPI QUIT
Allergies / Home Medications
Allergy/AdvReac Type Severity Reaction Status Date / Time
latex Allergy Shortness Verified 07/30/24 13:20
of Breath
oxycodone Allergy Nausea / Verified 07/30/24 13:20
Vomiting
iodine AdvReac Severe SOB,swelling,Localized Verified 07/30/24 13:20
burning
mold Allergy Shortness Uncoded 07/30/24 13:20
of Breath
nickel Allergy Itching Uncoded 07/30/24 13:20
NOT.[id number] - Not Allergy Pharmacy Uncoded 07/30/24 13:20
Converted 85. See Text. to Review
�Medication �Instructions �Recorded
loratadine 10 mg disintegrating 10 mg PO DAILYPRN PRN ALLERGIES 05/09/11
tablet (Allergy Relief
(loratadine))
Biote Hormone Pellet(Estrogen) 1 dose subcut (via wearable 02/26/24
injectr) DIRECTED Hormonal Agent
calcium 500 mg 1 tab PO DAILY Supplement 02/26/24
(carb,gluconate)-magnesium 250 mg
(gluc,oxide) tablet (Calcium
Magnesium)
cholecalciferol (vitamin D3) 125 125 mcg PO DAILY Supplement 02/26/24
mcg (5,000 unit) tablet (Vitamin
D3)
diltiazem HCl 240 mg 240 mg PO DAILY Blood Pressure 02/26/24
capsule,extended release 24 hr
lysine 1,000 mg tablet 1,000 mg PO DAILY Supplement 02/26/24
montelukast 10 mg tablet 10 mg PO HS asthma 02/26/24
naproxen sodium 220 mg tablet 220 mg PO Q8H PRN pain 02/26/24
(Aleve)
omeprazole 20 mg tablet,delayed 20 mg PO DAILY Gastrointestinal 02/26/24
release Issue
progesterone micronized 200 mg 200 mg PO HS Hormonal Agent 02/26/24
capsule
acetaminophen 325 mg tablet 650 mg PO Q4HPRN PRN MILD PAIN 02/27/24
(Tylenol)
albuterol 90 mcg-budesonide 80 2 inh inhalation Q6HPRN PRN 07/30/24
mcg/actuation HFA aerosol inhaler shortness of breath
(Airsupra)
albuterol sulfate 2.5 mg/3 mL 2.5 mg inhalation Q4HPRN PRN 07/30/24
(0.083 %) solution for nebulization shortness of breath
amoxicillin 875 mg-potassium 1 tab PO Q12H Infection 07/30/24
clavulanate 125 mg tablet
budesonide 160 mcg-glycopyr 9 2 inh inhalation BID 07/30/24
mcg-formot 4.8 mcg/actuation HFA Lung/Breathing Issues
inhaler (Breztri Aerosphere)
clobetasol 0.05 % topical cream 1 applic topical DAILYPRN PRN 07/30/24
ECZEMA FLARE
ferrous sulfate 325 mg (65 mg 325 mg PO DAILY Supplement 07/30/24
iron) tablet
Vital Signs / Lab Results
Temp Pulse Resp BP Pulse Ox
98.7 F 87 18 145/77 94
07/30/24 13:16 07/30/24 13:16 07/30/24 13:16 07/30/24 13:16 07/30/24 13:16
07/30/24 13:35
07/30/24 13:35
Assessment / Plan
PE: Afeb. Seen in triage. Ankle dressing removed. well approximated vertical incision healing without overt signs of infection over the right lateral ankle. Scar from medial malleolar fixation noted over the medial ankle. Mild edema. No drainage.
Ankle and subtalar joints range well with slight stiffness due to recent surgery. Calf soft, nontender. DNVI RLE. Ambulates unassisted with a slight limp. New dressing applied, to include adaptic, gauze, ABD, and dennise comression.
Xrays: Previous outpatient right ankle xrays revealed healed distal fibular and medial malleolar fractures with hardware in place.
Impression: Infected right ankle (intra-op cultures Prevotella +) s/p CLARY (lateral plate and screws) right ankle July 21
Plan: Unfortunately the patient's intra-operative cultures were Prevotella +. ID recommended admit, PICC placement, and IV ABX (for likely 6 weeks- with longer course of po ABX possible). Discussed with the patient at length. She understands
completely. Hopefully her time admitted is short. We appreciate, in advance, efforts of the primary, ID, and case management teams. She may be WBAT RLE ad devika. PT/OT not crucial during her admission. Once PICC is placed and ABX choice is made I
would anticipate her D/cing home for continued treatment, with close ID and Ortho follow-up. We will continue to follow her through her hospital stay. The ED and Dr. Jiménez (of ID) also made aware of the anticipated plan.
--- NOTE | 2024-07-30 16:17 | CON.ID ---
Consultation
-
Date/Time Consultation Requested: July 30, 2024 1425
Date/Time Consultation Performed: July 30, 2024 1620
Requesting Provider: Ck Valdez PA-C
Performing Provider: Dr. Charlotte Jiménez
Reason for Consultation: Right ankle hardware infection
Chief Complaint / Past History
Chief Complaint
Infected ankle hardware
History of Present Illness
History obtained from patient and review of outside records and labs. 64-year-old female with history of right bimalleolar ankle fracture status post ORIF on February 27, 2024. Wound eventually healed. However on 07/13/24 she noted a small pimple
like lesion on lateral R ankle. The lesion rapidly expanded. She was placed on Bactrim without improvement. Her ankle became red and swollen. Pus started to drain from the abscess. She presented to ED on July 18; the wound was lanced and cultured,
which grew MSSA. The next day, Bactrim changed to Augmentin. She then developed another abscess. On July 24, the lateral plate and screws were removed. Intraoperative cultures growing Prevotella - beta lactamase +. Patient then sent to the ER for
IV antibiotic. Pt reports right ankle is doing well. She can bear weight. Tolerating the Augmentin.
Past History
Additional Past Medical History:
Hypertension
Dyslipidemia
Intermittent asthma
Voicebox polyp
GERD
Anxiety
Right ankle bimalleolar fracture status post ORIF 02/27/2024 s/p removal of infected lateral screws/plate 07/24/24; medial ankle screws remain in place
Right knee arthroscopic surgery 2014
Left ankle fixation with screws 2014
x 2
Allergy History:
latex Allergy (Verified 07/30/24 13:20)
Shortness of Breath
oxycodone Allergy (Verified 07/30/24 13:20)
Nausea / Vomiting
iodine Adverse Reaction (Severe, Verified 07/30/24 13:20)
SOB,swelling,Localized burning
mold Allergy (Uncoded 07/30/24 13:20)
Shortness of Breath
nickel Allergy (Uncoded 07/30/24 13:20)
Itching
NOT.[id number] - Not Converted 85. See Text. Allergy (Uncoded 07/30/24 13:20)
Pharmacy to Review
Medications Reviewed: Yes
Current Antibiotics:
Augmentin (outpatient)
Social History
Tobacco: Former Smoker
Alcohol: Occasional
Drug: None
Personal:
Family History
Family History: Not Pertinent
Review of Systems
Review of Systems
General: Negative Fever, Chills or Change in Appetite
HEENT: Negative Sinus Problems or Headache
Cardiovascular: Negative Chest Pain, Dyspnea or Edema
Respiratory: Negative Dyspnea or Cough
Gasteroenterology: Negative Nausea, Vomiting or Diarrhea
Genital / Urological: Negative Dysuria or Flank Pain
Endocrine: Negative Weakness
Skin / Hair / Nails: Negative Rash
Neurological: Negative Dizziness
All systems: All other systems were reviewed and were negative
Vital Signs
Temp Pulse Resp BP Pulse Ox
98.7 F 87 18 145/77 94
07/30/24 13:16 07/30/24 13:16 07/30/24 13:16 07/30/24 13:16 07/30/24 13:16
Physical Exam
Physical Exam
Constitutional: No Acute Distress and Comfortable
Eyes: No Conjunctival Hemorrhage and Sclera Anicteric
Cardiovascular: Regular Rate and S1/S2
Pulmonary: Clear
Gastrointestinal: Soft, Non Tender, Non Distended and Normal Bowel Sounds
Genito-Urinary: Negative CVA Tenderness
Extremities: Negative Edema
Musculoskeletal: Other (right ankle ROM intact); Negative Joint Swelling or Joint Effusion
Wound: Other (right lateral ankle with tattoo of a palm tree, incision with sutures in place, dry, no erythema, no induration)
Neurological: AO x 3
Lab / Diagnostic Study Results
06/03/25 13:35
07/30/24 13:35
Abs Immat Gran (auto) 0.0 10^3/uL (0-0.05) 07/30/24 13:35
Absolute Neuts (auto) 7.6 10^3/uL (1.4-6.5) H 07/30/24 13:35
Absolute Lymphs (auto) 1.7 10^3/uL (1.2-3.4) 07/30/24 13:35
Absolute Monos (auto) 0.5 10^3/uL (0.1-0.6) 07/30/24 13:35
Absolute Basos (auto) 0.1 10^3/uL (0-0.2) 07/30/24 13:35
Immature Gran % 0.4 % (0-0.5) 07/30/24 13:35
Neutrophils % 74.5 % (42.2-75.2) 07/30/24 13:35
Lymphocytes % 17.0 % (20.5-51.1) L 07/30/24 13:35
Monocytes % 4.6 % (1.7-9.3) 07/30/24 13:35
Eosinophils % 2.8 % (0-6) 07/30/24 13:35
Basophils % 0.7 % (0-2) 07/30/24 13:35
Lactic Acid 0.9 mmol/L (0.7-2.0) 07/30/24 13:35
Microbiology Results
Micro:
07/30/24 13:35 Blood Culture - Pending
Blood/Venous
07/30/24 15:41 Blood Culture - Pending
Blood/Venous
Assessment / Plan
# Right lateral ORIF infection
- 07/18 ankle Abscess cx: MSSA
- 07/24 s/p removal of infected lateral screws/plate; medial ankle screws remain in place
- 07/24 OR anaerobic cx Prevotella, beta-lactamase positive; aerobic cx negative to date
- Start Unasyn 3 g IV q6h
At time of discharge transition to outpatient continuous infusion Unasyn 12g over 24H x 6 weeks through 09/10/24.
Follow weekly CBC, CMP, ESR, CRP.
Will submit Home infusion sheet to Case Management tomorrow am.
-Place Picc tomorrow.
--- NOTE | 2024-07-30 16:31 | EDRN ---
Pharmacy called for antibiotic orders.
--- NOTE | 2024-07-30 17:30 | HPS.HSE ---
Family Physician
-
Family Physician: Gui Xie
Chief Complaint
-
Right Ankle Infection
History of Present Illness
Patient is a 64 y/o female past medical history of hypertension, asthma and recent ankle fracture who presents with right ankle infection. Patient sustained a right ankle fracture back in Jan 2024. She underwent ORIF on Feb 27, 2024. Patient
reports the incision healed nicely and she was doing very well up until a month ago when she developed sore on the lateral aspect of ankle that was draining purulent material. She was seen in the ED and underwent bedside incision drainage which
grew out MSSA. Patient was evaluated by orthopedics and hardware from right ankle was removed one week ago. Intra-operative culture revealed Prevotella. After discussion with orthopedics and infectious disease patient was sent to the emergency
department for intravenous antibiotics. Patient denies any fevers, sweats or chills.
Medical History
Past Medical History
Past Medical History: Reports Other
Additional Past Medical History:
Essential Hypertension
Sinus Tachycardia
Asthma
Past Surgical History: Reports Other
Additional Past Surgical History:
Right Total Knee Replacement
Right Ankle ORIF with subsequent hardware removal
Left Ankle Reconstruction
Section
Abdominoplasty
Social History
Tobacco: Former Smoker (Quit about 30 years ago)
Alcohol: None
Family History
Family History: Not pertinent
Allergies / Home Medications
Allergies reflects when Allergies were last updated in [facility].
Home Medications with original date entered in [facility] [facility]
Allergy/Medication List:
Allergies
Allergy/AdvReac Type Severity Reaction Status Date / Time
latex Allergy Shortness Verified 07/30/24 13:20
of Breath
oxycodone Allergy Nausea / Verified 07/30/24 13:20
Vomiting
iodine AdvReac Severe SOB,swelling,Localized Verified 07/30/24 13:20
burning
mold Allergy Shortness Uncoded 07/30/24 13:20
of Breath
nickel Allergy Itching Uncoded 07/30/24 13:20
[id number] - Not Allergy Pharmacy Uncoded 07/30/24 13:20
Converted 85. See Text. to Review
Home Medications
loratadine 10 mg disintegrating tablet (Allergy Relief (loratadine)) 10 mg PO DAILYPRN PRN ALLERGIES 05/09/11
Biote Hormone Pellet(Estrogen) 1 dose subcut (via wearable injectr) DIRECTED Hormonal Agent 02/26/24
calcium 500 mg (carb,gluconate)-magnesium 250 mg (gluc,oxide) tablet (Calcium Magnesium) 1 tab PO DAILY Supplement 02/26/24
cholecalciferol (vitamin D3) 125 mcg (5,000 unit) tablet (Vitamin D3) 125 mcg PO DAILY Supplement 02/26/24
diltiazem HCl 240 mg capsule,extended release 24 hr 240 mg PO DAILY Blood Pressure 02/26/24
lysine 1,000 mg tablet 1,000 mg PO DAILY Supplement 02/26/24
montelukast 10 mg tablet 10 mg PO HS asthma 02/26/24
naproxen sodium 220 mg tablet (Aleve) 220 mg PO Q8H PRN pain 02/26/24
omeprazole 20 mg tablet,delayed release 20 mg PO DAILY Gastrointestinal Issue 02/26/24
progesterone micronized 200 mg capsule 200 mg PO HS Hormonal Agent 02/26/24
acetaminophen 325 mg tablet (Tylenol) 650 mg PO Q4HPRN PRN MILD PAIN 02/27/24
albuterol 90 mcg-budesonide 80 mcg/actuation HFA aerosol inhaler (Airsupra) 2 inh inhalation Q6HPRN PRN shortness of breath 07/30/24
albuterol sulfate 2.5 mg/3 mL (0.083 %) solution for nebulization 2.5 mg inhalation Q4HPRN PRN shortness of breath 07/30/24
amoxicillin 875 mg-potassium clavulanate 125 mg tablet 1 tab PO Q12H Infection 07/30/24
budesonide 160 mcg-glycopyr 9 mcg-formot 4.8 mcg/actuation HFA inhaler (Breztri Aerosphere) 2 inh inhalation BID Lung/Breathing Issues 07/30/24
clobetasol 0.05 % topical cream 1 applic topical DAILYPRN PRN ECZEMA FLARE 07/30/24
ferrous sulfate 325 mg (65 mg iron) tablet 325 mg PO DAILY Supplement 07/30/24
Review of Systems
-
History Source: Patient
A 12 point ROS was completed and negative except as noted: Yes
Constitutional: Denies Fever
Respiratory: Denies Cough or Trouble Breathing
Cardiac: Denies Chest Pain or Palpitations
Abdomen/GI: Denies Abdominal Pain, Nausea, Vomiting or Diarrhea
Musculoskeletal: Reports See HPI
Physical Exam
Vital Signs
Vital Signs
Temp Pulse Resp BP Pulse Ox
98.7 F 80 16 134/73 97
07/30/24 13:16 07/30/24 15:30 07/30/24 15:30 07/30/24 15:30 07/30/24 15:30
Physical Exam
General: Comfortable and Conversant
HEENT: Anicteric and Moist mucous membranes
Respiratory: Clear and Non Labored Respirations
Cardiac: S1/S2 and Regular Rhythm
GI: Soft and Non Tender
Rectal: Deferred by Provider
Musculoskeletal: No Clubbing, No Cyanosis and Other (Right ankle wrapped in MELISSA)
Skin: Warm and Dry
Neuro: Awake, Alert, Oriented and Nonfocal/grossly intact
Psych: Calm
Laboratory Results
-
07/30/24 13:35
07/30/24 13:35
Laboratory Results
Lactic Acid 0.9 mmol/L (0.7-2.0) 07/30/24 13:35
Total Bilirubin 0.2 mg/dl (0.2-1.3) 07/30/24 13:35
AST 20 U/L (14-36) 07/30/24 13:35
ALT 12 U/L (0-35) 07/30/24 13:35
Alkaline Phosphatase 104 U/L (38-126) 07/30/24 13:35
Data Reviewed
-
Lab Data: Labs Reviewed by me
Old Records: Reviewed
Impression/Plan
-
Right Ankle Infection
-Appreciate Orthopedics and Infectious Disease consult
-Continue Unasyn as per ID
-PICC line to be placed tomorrow
-Case Management consult to arrange outpatient antibiotics
Essential Hypertension
-Continue diltiazem
Asthma, no acute exacerbation
-Continue Breztri
-Continue albuterol PRN
-Continue montelukast
DVT proph: Lovenox
Code Status: Full Code
--- NOTE | 2024-07-30 17:37 | W.PN.UPDATE ---
Update Note
Progress Note Update
Patient was independently examined and I agree with H&P written on the same day. In addition: 64yo F with R ankle ORIF 03/2023, started with purulent wound in June, had her hardware taken out [facility] [place] and periOP Cx growing Prevotella. Cx in ED - MSSA
Septic joint
-ID recommending unasyn, ortho consult, PICC line, outpatient Abx until September 10 2024 as of now
We have spent 76min admitting the patient
--- NOTE | 2024-07-30 19:15 | EDRN ---
Assumed care of pt from previous RN. Pt c/o of itchiness on head and red rash noted on back. IV vanco stoped by previous RN. IV vanco given by previous RN but not scanned in APR. Noted about 430ml infused by previous RN. MERLE Carolina notified. Order
for IV benadryl and Pepcid - see APR. VSS.
--- NOTE | 2024-07-30 19:15 | EDRN ---
Pt just called this nurse to her room as she had itching in her hair all over her head, back and face red. Janes stopped and Sandrita, my replacement in formed at this time.
--- NOTE | 2024-07-30 19:20 | EDRN ---
IV team TT about PICC line order. Per IV team, PICC line to be placed tomorrow and aware.
[2024-07-30] MEDS: BENADRYL 25 MG IV (19:31)
[2024-07-30] MEDS: PEPCID 20 MG IV (19:31)
[2024-07-30] MEDS: VANCOCIN 540 MG IV (20:13)
[2024-07-30] MEDS: LOVENOX 40 MG SC (21:00)
[2024-07-30] MEDS: SINGULAIR 10 MG PO (21:01)
[2024-07-30] MEDS: UNASYN IV (21:02)
[2024-07-30] MEDS: NON-FORMULARY ITEM 200 MG PO (21:44)
[2024-07-30] MEDS: TYLENOL 650 MG PO (23:03)
--- NOTE | 2024-07-31 01:21 | PTCARENOTE ---
Pt arrived 2009 from ED. Pt was able to ambulate into room. VSS. R ankle with ABD and MELISSA C/D/I. oriented to room and call mosley. bed locked and in lowest position. plan of care ongoing.
[2024-07-31] MEDS: UNASYN IV ×4 (02:33→19:41)
[2024-07-31] MEDS: SYMBICORT 160/4.5 MCG INHALER INH (03:41)
--- NOTE | 2024-07-31 07:00 | W.PN.UPDATE ---
Update Note
Progress Note Update
Ms. Lopez is resting comfortably in bed at present. She reports her pain is well controlled with her current pain management regimen. She reports she is otherwise feeling well.
Directed exam of the right lower extremity reveals surgical incision well approximated with sutures. There is some serosanguineous drainage on ABD over incision. Expected post-operative edema about the ankle. Patient able to wiggle toes.
Neurovascularly intact. Afebrile.
We appreciate the assistance of all teams in care of this patient.
Intra-operative culture from [facility] positive for Prevotella. Currently on Unasyn per ID. Plan for PICC placement today. At time of discharge transition to outpatient continuous infusion Unasyn 12g over 24H x 6 weeks through 09/10/24. Follow weekly CBC,
CMP, ESR, CRP.
Orthopedics will continue to follow along.
--- NOTE | 2024-07-31 07:20 | W.PN.HOSP.TC ---
Today's Communication/Plan
-
Home infusion to be set up
Assessment / Plan
Assessment / Plan
Physical Exam
General: Comfortable and Conversant
HEENT: Normocephalic. Moist mucous membranes
Respiratory: Clear Bilaterally
Cardiac: S1/S2 and Regular Rhythm
GI: Soft and Non Tender. Positive bowel sounds.
Musculoskeletal: No Cyanosis and Other (Right ankle wrapped in MELISSA)
Skin: Warm and Dry
Neuro: Awake, Alert, Oriented and Nonfocal/grossly intact
Psych: Calm
Assessment/Plan
64 y/o female with past medical history of hypertension, asthma and recent ankle fracture who presents with right ankle infection. Patient sustained a right ankle fracture back in Jan 2024. She underwent ORIF on Feb 27, 2024. Patient reports the
incision healed nicely and she was doing very well up until a month ago when she developed sore on the lateral aspect of ankle that was draining purulent material. She was seen in the ED and underwent bedside incision drainage which grew out MSSA.
Patient was evaluated by orthopedics and hardware from right ankle was removed one week prior to presentation. Intra-operative culture revealed Prevotella. After discussion with orthopedics and infectious disease, patient was sent to the emergency
department for intravenous antibiotics. Patient denied any fevers, sweats or chills.
Right Ankle Infection
-Appreciate Orthopedics and Infectious Disease consult
-Continue Unasyn as per ID
-PICC line to be placed
-Case Management consult to arrange outpatient antibiotics
Essential Hypertension
-Continue diltiazem
Asthma, no acute exacerbation
-Continue Breztri
-Continue albuterol PRN
-Continue montelukast
DVT proph: Lovenox
Code Status: Full Code
Anticipated Discharge: Within 24 hours
Subjective/Interval History
-
Date of Service: July 31, 2024
Patient was seen and examined. She denied any new significant symptoms or complaints.
Objective Data
-
Vital Signs:
Vital Signs
Temp Pulse Resp BP Pulse Ox
98 F 93 20 156/75 95
07/30/24 23:00 07/30/24 23:00 07/30/24 23:00 07/30/24 23:00 07/31/24 01:10
I&O
07/30/24 07/31/24 08/01/24
06:59 06:59 06:59
Intake Total 720 / 720
Balance 720 / 720
[2024-07-31] MEDS: SPIRIVA RESPIMAT 2.5 MCG 2 PUFF INH (07:23)
[2024-07-31] MEDS: SYMBICORT 160/4.5 MCG INHALER 2 PUFF INH ×2 (07:24→18:00)
[2024-07-31 07:35] VITALS: BP 156/74
[2024-07-31] MEDS: CARDIZEM CD 240 MG PO (08:40)
[2024-07-31] MEDS: FEOSOL 325 MG PO (08:40)
[2024-07-31] MEDS: TYLENOL 650 MG PO ×2 (08:44→21:20)
[2024-07-31] MEDS: DIFLUCAN 150 MG PO (10:39)
[2024-07-31] MEDS: VISBIOME 2 CAP PO (10:39)
--- NOTE | 2024-07-31 11:40 | CM ---
Patient seen at bedside
IA completed
Dx: R ankle infection
Role of CM explained
ID tt CM Script for IV Unasyn 12g/24h continuous infusion end 09/11/24
PICC line to be placed
Fax PICC information & xray to [facility] once completed
discussed with patient - [facility] preferred
Faxed clinicals & face sheet to Trish at [facility] to run benefits check
Patient lives with in 1 story home, 1 step to enter
PLOF: independent
DME: Cane, walker, scooter, nebulizer
Denies insecurities
PCP: Gui Xie
Pharmacy: [address], [place]
PLAN: Home with IV antibiotics once coordinated, await benefit check
--- NOTE | 2024-07-31 12:33 | W.PN.ID1 ---
Date of Service
Date of Service: July 31, 2024
Today's Communication
Continue Unasyn
Assessment / Plan
# Right lateral ORIF infection
- 07/18 ankle Abscess cx: MSSA
- 07/24 s/p removal of infected lateral screws/plate; medial ankle screws remain in place
- 07/24 OR anaerobic cx Prevotella, beta-lactamase positive; aerobic cx negative to date
- Start Unasyn 3 g IV q6h
At time of discharge transition to outpatient continuous infusion Unasyn 12g over 24H x 6 weeks through 09/10/24.
Follow weekly CBC, CMP, ESR, CRP.
Submitted Home infusion sheet to Case Management.
-Place Picc .
# Vaginal candidiasis
- Ordered fluconazole 150mg po x 1.
Chief Complaint
-: Other (Ankle HW infection)
Subjective / Review of Systems
c/o vaginal itching from abx. also asking for probiotics.
Vital Signs / Physical Exam
Vital Signs
Vital Signs
Temp Pulse Resp BP Pulse Ox
97.8 F 91 18 156/74 98
07/31/24 07:35 07/31/24 08:40 07/31/24 07:35 07/31/24 08:40 07/31/24 07:35
Physical Exam
Constitutional: No Acute Distress and Comfortable
Cardiovascular: Regular Rate and S1/S2
Pulmonary: Clear
Gastrointestinal: Soft, Non Tender, Non Distended and Normal Bowel Sounds
Neurological: AO x 3
Objective Data
Lab Data
Lab Results
07/30/24 13:35
07/30/24 13:35
Lactic Acid 0.9 mmol/L (0.7-2.0) 07/30/24 13:35
Total Bilirubin 0.2 mg/dl (0.2-1.3) 07/30/24 13:35
AST 20 U/L (14-36) 07/30/24 13:35
ALT 12 U/L (0-35) 07/30/24 13:35
Alkaline Phosphatase 104 U/L (38-126) 07/30/24 13:35
C-Reactive Protein 6.30 mg/L (0.0-10.00) 07/30/24 13:35
Most recent labs reviewed.
Micro Results:
07/30/24 13:35 Blood Culture - Pending
Blood/Venous
07/30/24 15:41 Blood Culture - Pending
Blood/Venous
[2024-07-31 15:15] VITALS: BP 158/75
[2024-07-31] MEDS: LOVENOX 40 MG SC (17:33)
[2024-07-31] MEDS: SINGULAIR 10 MG PO (21:19)
[2024-07-31] MEDS: OSCAL CAL 500 500 MG PO (21:19)
[2024-07-31] MEDS: NON-FORMULARY ITEM 200 MG PO (21:20)
[2024-07-31] MEDS: VITAMIN D3 (cholecalciferol) 125 MCG PO (21:20)
[2024-07-31 23:21] VITALS: BP 139/70
[2024-08-01] MEDS: UNASYN IV ×4 (02:23→19:49)
[2024-08-01] MEDS: SYMBICORT 160/4.5 MCG INHALER 2 PUFF INH ×2 (07:22→20:11)
[2024-08-01 07:23] VITALS: BP 153/72
[2024-08-01] MEDS: SPIRIVA RESPIMAT 2.5 MCG 2 PUFF INH (07:23)
--- NOTE | 2024-08-01 07:35 | W.PN.UPDATE ---
Update Note
Progress Note Update
Status post right ankle hardware removal about [address] Olvera. Cultures show Provatella and she has PICC line. ID recommendations with Unasyn for 6 weeks. Afebrile this morning and vital signs stable. Right ankle dressing changed.
Incision with scant serosanguineous drainage. No warmth, erythema or pain. Passive motion is nonpainful. No calf discomfort. Distal neurovascular was intact. She may weight-bear as tolerated. Continue with dressing change every other day.
Follow-up in office 5 to 7 days for wound check. Appreciate medical team input. Okay for DC from orthopedic standpoint. Orthopedics to sign off for now.
--- NOTE | 2024-08-01 07:59 | W.PN.HOSP.TC ---
Today's Communication/Plan
-
Per case management, patient cannot be discharged yet since IV antibiotic for home not yet available and [facility] will come do teaching tomorrow
Assessment / Plan
Assessment / Plan
Physical Exam
General: Comfortable and Conversant
HEENT: Normocephalic. Moist mucous membranes
Respiratory: Clear Bilaterally
Cardiac: S1/S2 and Regular Rhythm
GI: Soft and Non Tender. Positive bowel sounds.
Musculoskeletal: No Cyanosis and Other (Right ankle wrapped in MELISSA)
Skin: Warm and Dry
Neuro: Awake, Alert, Oriented and Nonfocal/grossly intact
Psych: Calm
Assessment/Plan
64 y/o female with past medical history of hypertension, asthma and recent ankle fracture who presents with right ankle infection. Patient sustained a right ankle fracture back in Jan 2024. She underwent ORIF on Feb 27, 2024. Patient reports the
incision healed nicely and she was doing very well up until a month ago when she developed sore on the lateral aspect of ankle that was draining purulent material. She was seen in the ED and underwent bedside incision drainage which grew out MSSA.
Patient was evaluated by orthopedics and hardware from right ankle was removed one week prior to presentation. Intra-operative culture revealed Prevotella. After discussion with orthopedics and infectious disease, patient was sent to the emergency
department for intravenous antibiotics. Patient denied any fevers, sweats or chills.
Right lateral ankle ORIF infection
-Appreciate Orthopedics and Infectious Disease consult
-Continue Unasyn as per ID
-PICC line to be placed
-Case Management consult to arrange outpatient antibiotics
Essential Hypertension
-Continue diltiazem
Asthma, no acute exacerbation
-Continue Breztri
-Continue albuterol PRN
-Continue montelukast
DVT Prophylaxis: Lovenox
Code Status: Full Code
Anticipated Discharge: Within 24 hours
Subjective/Interval History
-
Date of Service: August 01, 2024
Patient was seen and examined. She reported she was doing okay, denied any new symptoms or complaints.
Objective Data
-
Vital Signs:
Vital Signs
Temp Pulse Resp BP Pulse Ox
98.4 F 82 16 139/70 97
07/31/24 23:21 08/01/24 07:26 08/01/24 07:26 07/31/24 23:21 08/01/24 07:26
I&O
07/31/24 08/01/24 08/02/24
06:59 06:59 06:59
Intake Total 720 / 720 1560 / 1560
Balance 720 / 720 1560 / 1560
[2024-08-01] MEDS: VISBIOME 2 CAP PO (08:27)
[2024-08-01] MEDS: CARDIZEM CD 240 MG PO (08:28)
[2024-08-01] MEDS: FEOSOL 325 MG PO (08:28)
--- NOTE | 2024-08-01 11:05 | CM ---
Addendum entered by Mirna Osborne RN 08/01/24 13:09:
Received cost of medications from Trish at [facility]. Cost will be $625.52/week. Patient has a deductible of $6,000 and an [id number] cost of $9,200. Patient informed. Trish will be out tomorrow to educate the patient on medication
administration/set-up. [facility] will manage PICC line.
Original Note:
Reviewed the chart notes and spoke with the patient and her daughter at the bedside. Message left for Trish [facility] Liaison for cost analysis of patient's medication. CM continues to be available to patient/family and is monitoring medical
plan for needs at discharge.
Plan: Discharge to home with IV abx through [facility] when medically stable.
--- NOTE | 2024-08-01 12:24 | W.PN.ID1 ---
Date of Service
Date of Service: August 01, 2024
Today's Communication
DC home when home IV abx set up.
Assessment / Plan
# Right lateral ankle ORIF infection
- 07/18 ankle Abscess cx: MSSA
- 07/24 s/p removal of infected lateral screws/plate; medial ankle screws remain in place
- 07/24 OR anaerobic cx Prevotella, beta-lactamase positive; aerobic cx negative to date
- Start Unasyn 3 g IV q6h
At time of discharge transition to outpatient continuous infusion Unasyn 12g over 24H x 6 weeks through 09/10/24.
Follow weekly CBC, CMP, ESR, CRP.
Submitted Home infusion sheet to Case Management 06/[address]
# Vaginal candidiasis resolved after fluconazole 150mg po x 1.
Chief Complaint
-: Other (Ankle HW infection)
Subjective / Review of Systems
Vaginal itching resolved.
Vital Signs / Physical Exam
Vital Signs
Vital Signs
Temp Pulse Resp BP Pulse Ox
98.1 F 88 16 153/72 97
08/01/24 07:23 08/01/24 08:28 08/01/24 07:26 08/01/24 08:28 08/01/24 07:26
Physical Exam
Constitutional: No Acute Distress and Comfortable
Cardiovascular: Regular Rate and S1/S2
Pulmonary: Clear
Gastrointestinal: Soft, Non Tender, Non Distended and Normal Bowel Sounds
Neurological: AO x 3
Lines: PICC (RUE)
Objective Data
Lab Data
Lab Results
07/30/24 13:35
07/30/24 13:35
Lactic Acid 0.9 mmol/L (0.7-2.0) 07/30/24 13:35
Total Bilirubin 0.2 mg/dl (0.2-1.3) 07/30/24 13:35
AST 20 U/L (14-36) 07/30/24 13:35
ALT 12 U/L (0-35) 07/30/24 13:35
Alkaline Phosphatase 104 U/L (38-126) 07/30/24 13:35
C-Reactive Protein 6.30 mg/L (0.0-10.00) 07/30/24 13:35
Most recent labs reviewed.
Micro Results:
07/30/24 15:41 Blood Culture - Preliminary
Blood/Venous No Growth in 24 hours- Final report to follow
07/30/24 13:35 Blood Culture - Preliminary
Blood/Venous No Growth in 24 hours- Final report to follow
[2024-08-01 14:12] VITALS: BP 149/70
[2024-08-01] MEDS: TUMS CHEWABLE TABLET 200 MG PO (16:33)
[2024-08-01] MEDS: PROTONIX 40 MG PO (16:34)
[2024-08-01] MEDS: LOVENOX 40 MG SC (18:34)
[2024-08-01] MEDS: OSCAL CAL 500 500 MG PO ×2 (20:40→20:41)
[2024-08-01] MEDS: SINGULAIR 10 MG PO (20:41)
[2024-08-01] MEDS: TYLENOL 650 MG PO (20:41)
[2024-08-01] MEDS: NON-FORMULARY ITEM 200 MG PO (20:41)
[2024-08-01] MEDS: VITAMIN D3 (cholecalciferol) 125 MCG PO (20:44)
[2024-08-01 23:40] VITALS: BP 134/69
[2024-08-02] MEDS: UNASYN IV ×2 (01:55→08:43)
[2024-08-02] MEDS: TYLENOL 650 MG PO (02:00)
[2024-08-02] MEDS: SPIRIVA RESPIMAT 2.5 MCG 2 PUFF INH (07:00)
[2024-08-02] MEDS: SYMBICORT 160/4.5 MCG INHALER 2 PUFF INH (07:00)
[2024-08-02 07:35] VITALS: BP 142/61
[2024-08-02] MEDS: VISBIOME 2 CAP PO (08:41)
[2024-08-02] MEDS: PROTONIX 40 MG PO (08:42)
[2024-08-02] MEDS: CARDIZEM CD 240 MG PO (08:43)
[2024-08-02] MEDS: FEOSOL 325 MG PO (08:43)
--- NOTE | 2024-08-02 09:00 | CM ---
Reviewed the chart notes. [facility] quality control representative to education patient at bedside this afternoon. Patient to discharge to home today with IV abx through [facility]. CM continues to be available to patient/family and is monitoring medical plan
for needs at discharge.
Plan: Discharge to home today with IV abx through [facility]. [facility] will manage PICC line as well.
--- NOTE | 2024-08-02 12:10 | W.PN.ID1 ---
Date of Service
Date of Service: August 02, 2024
Today's Communication
- c/w Unasyn 3 g IV q6h
stable for dc from ID perspective
Assessment / Plan
# Right lateral ankle ORIF infection
- 07/18 ankle Abscess cx: MSSA
- 07/24 s/p removal of infected lateral screws/plate; medial ankle screws remain in place
- 5/c/w OR anaerobic cx Prevotella, beta-lactamase positive; aerobic cx negative to date
- c/w Unasyn 3 g IV q6h
At time of discharge transition to outpatient continuous infusion Unasyn 12g over 24H x 6 weeks through 09/10/24.
Follow weekly CBC, CMP, ESR, CRP.
Submitted Home infusion sheet to Case Management 06/[address]
Stable for dc from ID perspective
# Vaginal candidiasis resolved after fluconazole 150mg po x 1.
Chief Complaint
-: Other (Ankle HW infection)
Subjective / Review of Systems
afebrile
bp stable
no events overnight
tolerating current therapies
Vital Signs / Physical Exam
Vital Signs
Vital Signs
Temp Pulse Resp BP Pulse Ox
98.5 F 82 16 142/61 97
08/02/24 07:35 08/02/24 07:35 08/02/24 07:35 08/02/24 08:43 08/02/24 07:35
Physical Exam
Constitutional: No Acute Distress
Cardiovascular: Regular Rate and S1/S2; Negative Murmur or Rub
Pulmonary: Clear and Symmetric; Negative Wheezes or Rales
Gastrointestinal: Soft, Non Tender, Non Distended and Normal Bowel Sounds
Skin: Warm and Dry; Negative Rash or Jaundice
Lines: PICC
Objective Data
Lab Data
Lab Results
07/30/24 13:35
07/30/24 13:35
Lactic Acid 0.9 mmol/L (0.7-2.0) 07/30/24 13:35
Total Bilirubin 0.2 mg/dl (0.2-1.3) 07/30/24 13:35
AST 20 U/L (14-36) 07/30/24 13:35
ALT 12 U/L (0-35) 07/30/24 13:35
Alkaline Phosphatase 104 U/L (38-126) 07/30/24 13:35
C-Reactive Protein 6.30 mg/L (0.0-10.00) 07/30/24 13:35
Most recent labs reviewed.
Micro Results:
07/30/24 15:41 Blood Culture - Preliminary
Blood/Venous No Growth in 48 hours- Final report to follow
07/30/24 13:35 Blood Culture - Preliminary
Blood/Venous No Growth in 48 hours- Final report to follow
--- NOTE | 2024-08-02 12:27 | W.PN.HOSP.TC ---
Today's Communication/Plan
-
Discharge today
Assessment / Plan
Assessment / Plan
Physical Exam
General: Comfortable and Conversant
HEENT: Normocephalic. Moist mucous membranes
Respiratory: Clear Bilaterally
Cardiac: S1/S2 and Regular Rhythm
GI: Soft and Non Tender. Positive bowel sounds.
Musculoskeletal: No Cyanosis and Other (Right ankle wrapped in MELISSA)
Skin: Warm and Dry
Neuro: Awake, Alert, Oriented and Nonfocal/grossly intact
Psych: Calm
Assessment/Plan
64 y/o female with past medical history of hypertension, asthma and recent ankle fracture who presents with right ankle infection. Patient sustained a right ankle fracture back in Jan 2024. She underwent ORIF on Feb 27, 2024. Patient reports the
incision healed nicely and she was doing very well up until a month ago when she developed sore on the lateral aspect of ankle that was draining purulent material. She was seen in the ED and underwent bedside incision drainage which grew out MSSA.
Patient was evaluated by orthopedics and hardware from right ankle was removed one week prior to presentation. Intra-operative culture revealed Prevotella. After discussion with orthopedics and infectious disease, patient was sent to the emergency
department for intravenous antibiotics. Patient denied any fevers, sweats or chills.
Right lateral ankle ORIF infection
-Appreciate Orthopedics and Infectious Disease consult
-Continue Unasyn as per ID
-Case Management consult to arrange outpatient antibiotics -- arranged
Essential Hypertension
-Continue diltiazem
Asthma, no acute exacerbation
-Continue Breztri
-Continue albuterol PRN
-Continue montelukast
DVT Prophylaxis: Lovenox
Code Status: Full Code
More than 30 minutes spent in discharge including
Final examination of the patient
Summarizing hospital stay
Instructions for continuing care to all relevant caregivers
Preparation of discharge records, prescriptions, and referral forms
Total time spent (in minutes): 37
Anticipated Discharge: Today
Subjective/Interval History
-
Date of Service: August 02, 2024
Patient was seen and examined. She denied any symptoms or complaints.
Objective Data
-
Vital Signs:
Vital Signs
Temp Pulse Resp BP Pulse Ox
98.5 F 82 16 142/61 97
08/02/24 07:35 08/02/24 07:35 08/02/24 07:35 08/02/24 08:43 08/02/24 07:35
I&O
08/01/24 08/02/24 08/03/24
06:59 06:59 06:59
Intake Total 1560 / 1560 240 / 240
Balance 1560 / 1560 240 / 240
[2024-08-02 13:00] VITALS: BP 135/71
--- NOTE | 2024-08-02 14:05 | W.DCSUMMARY ---
Addendum entered and electronically signed by Xavier Adam MD 08/02/24 16:31:
Patient will get Unasyn antibiotic 12g over 24H x 6 weeks through 09/10/24
Original Note:
Discharge Summary
Discharge Data
Date of Admission: 07/30/24
Date of Discharge: 08/02/24
Total time spent discharging patient (in min): 37
-
Pending Results: Yes
Additional Pending Results:
Final results of microbiology lab studies from hospitalization
Hospital Course
64 y/o female with past medical history of hypertension, asthma and recent ankle fracture who presented with right ankle infection. Patient sustained a right ankle fracture back in January 2024. She underwent ORIF surgery for the fracture on Jan
2023. Patient reported that the incision healed nicely and she was doing very well up until a month prior when she developed sore on the lateral aspect of ankle that was draining purulent material. She was seen in the ED and underwent bedside
incision drainage which grew out MSSA. Patient was evaluated by orthopedics and hardware from right ankle was removed about one week prior to presentation. Intra-operative culture revealed Prevotella. After discussion with orthopedics and
infectious disease patient was sent to the emergency department for intravenous antibiotics -- patient she was instructed by Ned Yao PA-C, to present to the emergency department for admission to the hospitalist team with infectious disease
consult, placement of PICC line, and the initiation of intravenous antibiotics. Infectious Disease and orthopedics were consulted. Patient was started on Unasyn. Patient was given Fluconazole one-time dose for vaginal candidiasis. PICC line was
placed. Patient was ready for discharge.
Discharge Plan
-
Patient Disposition: Home with Home Care
Discharge Diagnosis/Procedures: #Right lateral ankle ORIF infection
#Vaginal candidiasis resolved after fluconazole 150 mg P.O. x 1
#Essential Hypertension
#Asthma
Condition: Good
Diet: As tolerated
Activity: As tolerated and Other activity
Additional Activity: Weight bearing as tolerated to the right ankle
Driving Restrictions: No driving
Blood Work: Follow weekly CBC, CMP, ESR and CRP.
Activity Restrictions/Additional Instructions:
Follow-up in Dr. Olvera's (orthopedics) office 5 to 7 days for wound check.
Do dressing changes as recommended by orthopedics.
At time of hospital discharge, transition to outpatient continuous infusion Unasyn 12g over 24H x 6 weeks through 09/10/24.
Follow weekly CBC, CMP, ESR, CRP.
Referrals:
Gui Xie DO [Family Provider, [facility]] - in less than 1 week
Referral Note: Hospital Follow-Up
Charlotte Jiménez MD [Active, Infectious Diseases] - in three to four weeks
Additional Discharge Medication Instructions: Unasyn antibiotic 12g over 24H x 6 weeks through 09/10/24, is a new medication.
You can get Visbiome probiotic over the counter at the pharmacy.
Prescriptions:
New
Lactobac/Bifidobac [Visbiome]
2 cap PO DAILY Qty: 30 0RF
Continued
loratadine [Allergy Relief (loratadine)] 10 MG tablet,disintegrating
10 mg PO DAILYPRN PRN (Reason: ALLERGIES)
Patient Comments:
pt alternates with zyrtec
progesterone micronized 200 mg Capsule
200 mg PO HS
montelukast 10 mg Tablet
10 mg PO HS
diltiazem HCl 240 mg Capsule,Extended Release 24hr
240 mg PO DAILY
lysine 1,000 mg Tablet
1,000 mg PO DAILY
omeprazole 20 mg Tablet,Delayed Release (Dr/Ec)
20 mg PO DAILY
cholecalciferol (vitamin D3) [Vitamin D3] 125 mcg (5,000 unit) Tablet
125 mcg PO DAILY
Calcium Magnesium 500 mg calcium- 250 mg Tablet
1 tab PO DAILY
Biote Hormone Pellet(Estrogen)
1 dose subcut (via wearable injectr) DIRECTED
Rx Instructions:
[id number]
acetaminophen [Tylenol] 325 mg Tablet
650 mg PO Q4HPRN PRN (Reason: MILD PAIN)
albuterol sulfate 2.5 mg /3 mL (0.083 %) solution for nebulization
2.5 mg inhalation Q4HPRN PRN (Reason: shortness of breath)
clobetasol 0.05 % cream
1 applic TOPICAL DAILYPRN PRN (Reason: ECZEMA FLARE)
ferrous sulfate 325 mg (65 mg iron) Tablet
325 mg PO DAILY
Breztri Aerosphere 160-9-4.8 mcg/actuation HFA aerosol inhaler
2 inh INHALATION BID
Airsupra 90-80 mcg/actuation Hfa Aerosol Inhaler
2 inh INHALATION Q6HPRN PRN (Reason: shortness of breath)
Discontinued
naproxen sodium [Aleve] 220 mg Tablet
220 mg PO Q8H PRN (Reason: pain)
amoxicillin-pot clavulanate 875-125 mg tablet
1 tab PO Q12H
Discharge Orders:
Discharge Patient (As Directed); Ordered 08/02/24
Ordered By: Xavier Adam
Discharge Date and Time
Discharge Date/Time: 08/02/24 14:22
Print Language: BULGARIAN
== END 2024-08-02 14:22 | disposition home health service (06) | DRG 561 ==
LOC: 2 SOUTH 18:38
PROVIDERS: Emergency Medicine; ADMITTING PHYSICIAN Internal Medicine; ATTENDING PHYSICIAN Hospitalist; CONSULT PHYSICIAN Internal Medicine Infectious Disease; CONSULT PHYSICIAN Orthopaedic Surgery Hand Surgery; EMERGENCY PHYSICIAN Student in an Organized Health Care Education/Training Program; FAMILY PHYSICIAN Family Medicine
DX: T84.622A Infection and inflammatory reaction due to internal fixation device of right tibia, initial encounter (principal); Y83.1 Surgical operation with implant of artificial internal device as the cause of abnormal reaction of the patient, or of later complication, without mention of misadventure at the time of the procedure; B37.31 Acute candidiasis of vulva and vagina; I10 Essential (primary) hypertension; A49.01 Methicillin susceptible Staphylococcus aureus infection, unspecified site; Z87.891 Personal history of nicotine dependence
CPT/HCPCS: 71045; 80053; 83605; 85025; 86140; 87040; 94640; 96374; 96375; 99284

== ENCOUNTER → 2024-09-05 07:48 | Outpatient (REF) | payer OTHER, SELFPAY | LOC: WOUND 07:48 | PROVIDERS: ATTENDING PHYSICIAN Surgery; FAMILY PHYSICIAN Family Medicine | DX: T81.41XA Infection following a procedure, superficial incisional surgical site, initial encounter (principal); L97.312 Non-pressure chronic ulcer of right ankle with fat layer exposed; Z91.040 Latex allergy status; Y83.8 Other surgical procedures as the cause of abnormal reaction of the patient, or of later complication, without mention of misadventure at the time of the procedure | CPT/HCPCS: 11042; 99203 ==

== ENCOUNTER → 2024-09-10 10:26 | Outpatient (REF) | payer OTHER, SELFPAY | LOC: WOUND 10:26 | PROVIDERS: ATTENDING PHYSICIAN Surgery | DX: T81.41XA Infection following a procedure, superficial incisional surgical site, initial encounter (principal); L97.312 Non-pressure chronic ulcer of right ankle with fat layer exposed; Z91.040 Latex allergy status; Y83.8 Other surgical procedures as the cause of abnormal reaction of the patient, or of later complication, without mention of misadventure at the time of the procedure | CPT/HCPCS: 11042 ==

== ENCOUNTER → 2024-09-19 10:23 | Outpatient (REF) | payer OTHER, SELFPAY | LOC: WOUND 10:23 | PROVIDERS: ATTENDING PHYSICIAN Surgery; FAMILY PHYSICIAN Family Medicine | DX: T81.41XA Infection following a procedure, superficial incisional surgical site, initial encounter (principal); L97.312 Non-pressure chronic ulcer of right ankle with fat layer exposed; Z91.040 Latex allergy status; Y83.8 Other surgical procedures as the cause of abnormal reaction of the patient, or of later complication, without mention of misadventure at the time of the procedure | CPT/HCPCS: 11042 ==

== ENCOUNTER → 2024-09-27 09:28 | Outpatient (REF) | payer OTHER, SELFPAY | LOC: WOUND 09:28 | PROVIDERS: ATTENDING PHYSICIAN Surgery; FAMILY PHYSICIAN Family Medicine | DX: T81.41XA Infection following a procedure, superficial incisional surgical site, initial encounter (principal); Y83.8 Other surgical procedures as the cause of abnormal reaction of the patient, or of later complication, without mention of misadventure at the time of the procedure; L97.312 Non-pressure chronic ulcer of right ankle with fat layer exposed; Z91.040 Latex allergy status | CPT/HCPCS: 99212 ==